=== PATIENT | male | born 1955 | race Caucasian/White ===

== ENCOUNTER → 2016-09-18 | Outpatient (REF) | payer BC | LOC: M LAB REF 13:10 | PROVIDERS: ATTEND Internal Medicine | DX: D51.9 Vitamin B12 deficiency anemia, unspecified (principal) ==

== ENCOUNTER → 2017-10-07 | Outpatient (REF) | payer BC ==
[2017-10-07 12:48] LABS: VITAMIN B12 LEVEL 336 PG/ML (247-911)
== END ==
LOC: M LAB REF 12:08
DX: D51.9 Vitamin B12 deficiency anemia, unspecified (principal)
CPT/HCPCS: 82607

== ENCOUNTER 2018-08-21 20:30 | Observation (INO) | payer BC ==
[~2018-08-21] VITALS: Ht 190.5 cm; Wt 100.8 kg
[2018-08-21 20:54] LABS: BASO % 0.5 % (0.0-1.0); EOS # 0.2 10^3/uL (0.0-0.50); EOS % 2.1 % (0.0-3.0); HEMATOCRIT 42.7 % (42.0-52.0); HEMOGLOBIN 14.6 g/dl (13.5-17.5); LYMPH # 3.2 10^3/uL (1.5-4.5); LYMPH % 39.1 % (24.0-44.0); MEAN CORPUSCULAR HEMOGLOBIN 32.9 pg (27.0-33.0); MEAN CORPUSCULAR HGB CONC 34.2 g/dl (32.0-36.5); MEAN CORPUSCULAR VOLUME 96.2 fl (80.0-96.0); MONO % 11.7 % (0.0-5.0); NEUTROPHILS # 3.8 10^3/uL (1.8-7.7); NEUTROPHILS % 46.4 % (36.0-66.0); PLATELET COUNT, AUTOMATED 202 10^3/uL (150-450); RED BLOOD COUNT 4.44 10^6/uL (4.30-6.10); WHITE BLOOD COUNT 8.3 10^3/uL (4.0-10.0)
[2018-08-21] MEDS: NITROGLYCERIN 0.4 MG SUBL TABLET SL PRN ×2 (21:10→21:21)
[2018-08-21 21:14] LABS: INR 0.99; PROTHROMBIN TIME 12.8 SECONDS (11.8-14.0)
[2018-08-21] MEDS ORDERED: ASPIRIN 81 MG CHEW TABLET PO ONE (21:15)
[2018-08-21 21:37] LABS: ALBUMIN 4.1 GM/DL (3.2-5.2); ALT/SGPT 30 U/L (12-78); BILIRUBIN,DIRECT 0.1 MG/DL (0.0-0.2); BILIRUBIN,TOTAL 0.6 MG/DL (0.2-1.0); BLOOD UREA NITROGEN 22 MG/DL (7-18); CALCIUM LEVEL 9.1 MG/DL (8.8-10.2); CARBON DIOXIDE LEVEL 27 MEQ/L (21-32); CHLORIDE LEVEL 108 MEQ/L (98-107); CK-MB VALUE MASS 1.7 NG/ML (<3.6); CPK CREATINE PHOSPHOKINASE 1392 U/L (39-308); GLOMERULAR FILTRATION RATE 50.3 (>49); GLUCOSE, FASTING 73 MG/DL (70-100); LIPASE 95 U/L (73-393); MB/CK RELATIVE INDEX 0.12 (< OR =4); POTASSIUM SERUM 3.9 MEQ/L (3.5-5.1); SODIUM LEVEL 144 MEQ/L (136-145); TOTAL PROTEIN 7.4 GM/DL (6.4-8.2); TROPONIN I < 0.02 NG/ML (< 0.10)
[2018-08-21] MEDS: NS 1,000 ML IV SCH (22:07)
[2018-08-22] MEDS: NS 1,000 ML IV SCH ×4 (02:30→22:12)
[2018-08-22 02:51] LABS: CK-MB VALUE MASS 1.5 NG/ML (<3.6); CPK CREATINE PHOSPHOKINASE 2536 U/L (39-308); MB/CK RELATIVE INDEX 0.06 (< OR =4); TROPONIN I < 0.02 NG/ML (< 0.10)
[2018-08-22] MEDS ORDERED: NS 1,000 ML IV ONE (03:15)
--- NOTE | 2018-08-22 03:44 | HPEPDOC ---
General Date of Admission 08/22/2018 Date of Service: Aug 22, 2018 Attending Physician: TRISTON CASTRO DO Chief Complaint The patient is a 62-year-old male admitted with a reason for visit of Chest [place] n. History of Present Illness Patient is a 62-year-old male who presented to the emergency room on account of left chest pain of sudden onset while he was outside raking leaves yesterday evening. Patient has a past medical history significant for hypertension. Patient reports will 3-4 days he has been feeling weak. He decided to rake leaves yesterday and after 2 bags was exhausted and decided to sit down. He went out with his friends to the [place] and on return home resumed raking the leaves again. He felt sudden pain to his left arm which radiated to his left chest. Pain lasted until arrival to emergency room. Other than weakness. There was no other associated symptoms Initial assessment in the emergency room revealed negative troponin at 0.02, total creatinine kinase, however, was elevated at 1392. Subsequent creatinine kinase trended upward to 2536. Creatinine was 1.50, BUN/creatinine 22, GFR 50. Patient was placed on IV fluids at 250 mL per hour. On assessment, he reveals he felt significantly improved after first liter of IV fluids. He denied further episodes of chest pain or shortness of breath. Home Medications No Active Prescriptions or Reported Meds Allergies Coded Allergies: No Known Allergies (Unverified , 08/21/18) Past Medical History Medical History Hypertension Inguinal hernia Kidney stones Diverticulitis Surgical History Hernia repair Right thumb repair Family History Father: Hypertension, TIA, CVA Social History * Smoker: Denies Alcohol: occationally Drugs: denies A-FIB/CHADSVASC A-FIB History Current/History of A-Fib/PAF?: No Current PO Anticoag Therapy: No Review of Systems Other systems A 10 point pertinent review of systems was completed, negative except as stated in the history of presenting illness. Physical Examination Other physical findings GENERAL: NAD SKIN : Warm, dry intact HEENT: Atraumatic, normocephalic, PERRL, moist mucous membrane CARDIOVASCULAR: Regular rate and rhythm, S1S2, no JVD, no edema, distal pulses + and palpable RESP: CTAB, no accessory muscle use noted ABDOMEN: BS+ non distended non tender MS: no joint deformities NEURO: Alert and oriented x 3, CN2-12 grossly intact PSYCH: no anxiety or agitation, appropriate mood and affect. Vital Signs Vital Signs Date Time Temp Pulse Resp B/P (MAP) Pulse Ox O2 Delivery O2 Flow Rate FiO2 08/22/18 03:15 62 96 08/22/18 03:00 16 147/99 (115) Room Air 08/21/18 21:30 4.0 08/21/18 20:31 96.2 Laboratory Data Labs 24H Laboratory Tests 2 08/21/18 20:38: Immature Granulocyte % (Auto) 0.2, White Blood Count 8.3, Red Blood Count 4.44, Hemoglobin 14.6, Hematocrit 42.7, Mean Corpuscular Volume 96.2H, Mean Corpuscular Hemoglobin 32.9, Mean Corpuscular Hemoglobin Concent 34.2, Red Cell Distribution Width 13.0, Platelet Count 202, Neutrophils (%) (Auto) 46.4, Lymphocytes (%) (Auto) 39.1, Monocytes (%) (Auto) 11.7H, Eosinophils (%) (Auto) 2.1, Basophils (%) (Auto) 0.5, Neutrophils # (Auto) 3.8, Lymphocytes # (Auto) 3.2, Monocytes # (Auto) 1.0H, Eosinophils # (Auto) 0.2, Basophils # (Auto) 0.0, Nucleated Red Blood Cells % (auto) 0.0, Prothrombin Time 12.8, Prothromb Time International Ratio 0.99, Anion Gap 9, Glomerular Filtration Rate 50.3, Calcium Level 9.1, Aspartate Amino Transf (AST/SGOT) 25, Alanine Aminotransferase (ALT/SGPT) 30, Alkaline Phosphatase 63, Total Bilirubin 0.6, Direct Bilirubin 0.1, Total Creatine Kinase 1392H, Creatine Kinase MB 1.7, Creatine Kinase MB Relative Index 0.12, Troponin I < 0.02, Total Protein 7.4, Albumin 4.1, Albumin/Globulin Ratio 1.24, Lipase 95 08/22/18 01:59: Total Creatine Kinase 2536#H, Creatine Kinase MB 1.5, Creatine Kinase MB Relative Index 0.06, Troponin I < 0.02 CBC/BMP Laboratory Tests 08/21/18 20:38 Red Blood Count 4.44, Mean Corpuscular Volume 96.2 H, Mean Corpuscular Hemoglobin 32.9, Mean Corpuscular Hemoglobin Concent 34.2, Red Cell Distribution Width 13.0, Neutrophils (%) (Auto) 46.4, Lymphocytes (%) (Auto) 39.1, Monocytes (%) (Auto) 11.7 H, Eosinophils (%) (Auto) 2.1, Basophils (%) (Auto) 0.5, Neutrophils # (Auto) 3.8, Lymphocytes # (Auto) 3.2, Monocytes # (Auto) 1.0 H, Eosinophils # (Auto) 0.2, Basophils # (Auto) 0.0 Assessment/Plan Chest pain -Acute NV has been ruled out with negative cardiac biomarkers -2-D echocardiogram to evaluate ejection fraction, rule out regional wall motion abnormalities- Given the fact that patient's chest pain is nonreproducible -We will need ischemic evaluation. Inpatient versus outpatient -CAD risk factor modifications with aspirin, statin, beta alannah therapy Acute kidney injury -Baseline creatinine seems to be 1.06 and patient has had a 30% increase -GFR also reduce at 50% -Acute injury, likely due to acute rhabdomyolysis -Monitor renal indices with treatment of underlying rhabdomyolysis -Avoid nephrotoxic medications Acute rhabdomyolysis -Etiology unclear. Could be multifactorial -IV fluids at 1 50 mL per hour -CK trending every 6 hours Hypertension -Monitoring. Unit protocol -. Target systolic blood pressure less than 1 40 mmHg DVT prophylaxis -Heparin subcutaneous every 8 Advanced care planning -CODE STATUS is full resuscitation Plan / VTE VTE Prophylaxis Ordered?: Yes ANGELLA SIFUENTESP Aug 22, 2018 03:44
[2018-08-22] MEDS ORDERED: ACETAMINOPHEN TAB 650MG DOSE (2X325MG) PO PRN (04:30)
[2018-08-22 05:00] VITALS: BP 152/99
[2018-08-22] MEDS: HEPARIN SOD (PORCINE) 5000 UNITS/ML VIAL SC SCH ×3 (06:42→22:12)
--- NOTE | 2018-08-22 07:25 | REP ---
Clinical: Chest pain . Comparison: 04/10/2018 . Findings: The mediastinum and cardiac silhouette are stable and within normal limits for portable technique. The lung abad are clear without acute consolidation, effusion, or pneumothorax. Skeletal structures are intact. Impression: No acute cardiopulmonary process appreciated. Electronically Signed by Elias Ng MD 08/22/2018 07:17 A
[2018-08-22] MEDS ORDERED: NITROGLYCERIN 0.4 MG SUBL TABLET SL PRN (08:45)
[2018-08-22] MEDS: ASPIRIN 325 MG TAB PO SCH (08:59)
[2018-08-22] MEDS: CARVedilol 3.125 MG TAB PO SCH ×2 (09:00→22:11)
[2018-08-22 10:00] VITALS: BP 165/103
[2018-08-22 13:07] LABS: CPK CREATINE PHOSPHOKINASE 2506 U/L (39-308); TROPONIN I < 0.02 NG/ML (< 0.10)
[2018-08-22 14:00] VITALS: BP 149/89
--- NOTE | 2018-08-22 17:26 | ECGEPIP ---
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
--- NOTE | 2018-08-22 17:34 | ECGEPIP ---
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
[2018-08-22 18:00] VITALS: BP 142/92
[2018-08-22 22:00] VITALS: BP 131/82
[2018-08-22 22:11] VITALS: BP 131/82
[2018-08-22] MEDS: ATORVASTATIN 20 MG TAB PO SCH ×2 (22:12→22:20)
[2018-08-23 02:00] VITALS: BP 126/74
[2018-08-23 05:53] LABS: HEMATOCRIT 37.8 % (42.0-52.0); HEMOGLOBIN 13.1 g/dl (13.5-17.5); MEAN CORPUSCULAR HEMOGLOBIN 32.9 pg (27.0-33.0); MEAN CORPUSCULAR HGB CONC 34.7 g/dl (32.0-36.5); PLATELET COUNT, AUTOMATED 156 10^3/uL (150-450); RED BLOOD COUNT 3.98 10^6/uL (4.30-6.10); WHITE BLOOD COUNT 6.1 10^3/uL (4.0-10.0)
[2018-08-23 06:00] VITALS: BP 147/82
[2018-08-23] MEDS: HEPARIN SOD (PORCINE) 5000 UNITS/ML VIAL SC SCH (06:00)
[2018-08-23 06:26] LABS: ALBUMIN 3.3 GM/DL (3.2-5.2); ALT/SGPT 24 U/L (12-78); BILIRUBIN,TOTAL 0.6 MG/DL (0.2-1.0); BLOOD UREA NITROGEN 14 MG/DL (7-18); CALCIUM LEVEL 8.6 MG/DL (8.8-10.2); CARBON DIOXIDE LEVEL 28 MEQ/L (21-32); CHLORIDE LEVEL 110 MEQ/L (98-107); CPK CREATINE PHOSPHOKINASE 1731 U/L (39-308); CREATININE FOR GFR 1.04 MG/DL (0.70-1.30); GLOMERULAR FILTRATION RATE > 60.0 (>49); GLUCOSE, FASTING 90 MG/DL (70-100); MAGNESIUM LEVEL 1.9 MG/DL (1.8-2.4); SODIUM LEVEL 141 MEQ/L (136-145); TOTAL PROTEIN 6.3 GM/DL (6.4-8.2)
[2018-08-23] MEDS: NS 1,000 ML IV SCH (07:35)
[2018-08-23] MEDS: CARVedilol 3.125 MG TAB PO SCH (08:20)
[2018-08-23] MEDS: ASPIRIN 325 MG TAB PO SCH (08:20)
[2018-08-23] MEDS ORDERED: ASPI81TA21 PO (09:55)
[2018-08-23] MEDS ORDERED: CARV3.12 PO (09:55)
[2018-08-23] MEDS ORDERED: NITR4TASL SL (09:55)
--- NOTE | 2018-08-23 09:59 | DS.PDOC ---
Discharge Summary General Date of Admission Aug 21, 2018 at 20:31 Date of Discharge Today Primary Care Physician: A Discharge Summary Chief Complaint The patient is a 62-year-old male admitted with a reason for visit of Chest Pain. History of Present Illness Patient is a 62-year-old male who presented to the emergency room on account of left chest pain of sudden onset while he was outside raking leaves yesterday evening. Patient has a past medical history significant for hypertension. The patient on my encounter stated that he felt like a spasm in her left arm which went up to the shoulder. Troponins were negative, but the patient was very reluctant to get the blood test drawn. His creatinine phosphokinase was elevated in 1999, and he just was feeling to get those tests done. The phosphokinase trended down after IV hydration. The patient's renal function continued to be no rmal. Patient was kept on telemetry monitoring which did not show any events. Serial EKGs did not reveal any ACS. The patient was completely chest pain-free. 2-D echo was ordered but not completed, but the patient does not want to get it done as he wants to follow with the primary doctor to get this done. The patient has been advised to continue drinking a lot of fluids called the PCP in 2-3 days to schedule a stress test and get the repeat blood work done. The patient will be discharged home on Coreg, aspirin and sublingual nitroglycerin when necessary. Everything has been explained to the patient in detail. He wants to go home today and does not want any other workup done inpatient and wants to follow with his primary care doctor as an outpatient Physical Examination GENERAL: NAD SKIN : Warm, dry intact HEENT: Atraumatic, normocephalic, PERRL, moist mucous membrane CARDIOVASCULAR: Regular rate and rhythm, S1S2, no JVD, no edema, distal pulses + and palpable RESP: CTAB, no accessory muscle use noted ABDOMEN: BS+ non distended non tender MS: no joint deformities NEURO: Alert and oriented x 3, CN2-12 grossly intact PSYCH: no anxiety or agitation, appropriate mood and affect. Vital Signs Date Time Temp Pulse Resp B/P (MAP) Pulse Ox O2 Delivery O2 Flow Rate FiO2 08/23/18 06:00 96.8 58 18 147/82 (103) 97 08/23/18 02:00 97.9 84 18 126/74 (91) 93 08/22/18 22:11 56 131/82 08/22/18 22:00 96.9 59 18 131/82 (98) 96 08/22/18 18:00 97.6 70 20 142/92 (109) 97 08/22/18 14:00 96.3 63 18 149/89 (109) 95 08/22/18 10:00 96.7 56 20 165/103 (123) 95 Intake & Output 08/23/18 06:00 Intake Total 3475 ml Output Total 2325 ml Balance 1150 ml Laboratory Tests 08/22/18 12:12: Total Creatine Kinase 2506H, Troponin I < 0.02 08/22/18 17:47: Total Creatine Kinase 2283H 08/22/18 23:39: Total Creatine Kinase 2091H 08/23/18 05:36: Total Creatine Kinase 1731H, White Blood Count 6.1, Red Blood Count 3.98L, Hemoglobin 13.1L, Hematocrit 37.8L, Mean Corpuscular Volume 95.0, Mean Cor puscular Hemoglobin 32.9, Mean Corpuscular Hemoglobin Concent 34.7, Red Cell Distribution Width 12.9, Platelet Count 156, Nucleated Red Blood Cells % (auto) 0.0, Blood Urea Nitrogen 14, Creatinine 1.04, Sodium Level 141, Potassium Level 4.0, Chloride Level 110H, Carbon Dioxide Level 28, Calcium Level 8.6L, Aspartate Amino Transf (AST/SGOT) 27, Alanine Aminotransferase (ALT/SGPT) 24, Alkaline Phosphatase 44L, Total Bilirubin 0.6, Total Protein 6.3L, Albumin 3.3, Anion Gap 3L, Glomerular Filtration Rate > 60.0, Fasting Glucose 90, Magnesium Level 1.9, Albumin/Globulin Ratio 1.10 Current Medications Medications (Trade) Dose Ordered Sig/Tonia Route PRN Reason Start Time Stop Time Status Last Admin Dose Admin Aspirin (Aspirin) 325 mg DAILY PO 08/22/18 09:00 08/22/18 08:59 325 MG Carvedilol (COReg) 3.125 mg BID PO 08/22/18 09:00 08/22/18 09:00 3.125 MG Heparin Sodium (Porcine) (Heparin) 5,000 units Q8H SC 08/22/18 06:00 08/22/18 22:12 5,000 UNITS Sodium Chloride 1,000 ml @ 100 mls/hr Q10H IV 08/22/18 04:30 08/22/18 22:12 100 MLS/HR Medications. As per discharge reconciliation medication list, Coreg, aspirin and sublingual nitroglycerin have been added Activity as tolerated Diet. 2 g sodium diet Follow-up appointments. PCP in 1 week, cardiology in 1 week. Condition on discharge. Patient is medically optimized for discharge Discharge disposition: Home Total time spent on this discharge including coordination of care, review of chart documentation and extubation contact is around 35 minutes Vital Signs/I&Os Vital Signs Date Time Temp Pulse Resp B/P (MAP) Pulse Ox O2 Delivery O2 Flow Rate FiO2 08/23/18 06:00 96.8 58 18 147/82 (103) 97 08/22/18 04:00 Room Air 08/21/18 21:30 4.0 I&O- Last 24 Hours up to 6 AM 08/23/18 06:00 Intake Total 3475 ml Output Total 2325 ml Balance 1150 ml Laboratory Data Labs 24H Laboratory Tests 2 08/22/18 12:12: Total Creatine Kinase 2506H, Troponin I < 0.02 08/22/18 17:47: Total Creatine Kinase 2283H 08/22/18 23:39: Total Creatine Kinase 2091H 08/23/18 05:36: Total Creatine Kinase 1731H, Nucleated Red Blood Cells % (auto) 0.0, Anion Gap 3L, Glomerular Filtration Rate > 60.0, Blood Urea Nitrogen 14, Creatinine 1.04, Sodium Level 141, Potassium Level 4.0, Chloride Level 110H, Carbon Dioxide Level 28, Calcium Level 8.6L, Aspartate Amino Transf (AST/SGOT) 27, Alanine Aminotransferase (ALT/SGPT) 24, Alkaline Phosphatase 44L, Total Bilirubin 0.6, Total Protein 6.3L, Albumin 3.3, Magnesium Level 1.9, Albumin/Globulin Ratio 1.10 CBC/BMP Laboratory Tests 08/23/18 05:36 Red Blood Count 3.98 L, Mean Corpuscular Volume 95.0, Mean Corpuscular Hemoglobin 32.9, Mean Corpuscular Hemoglobin Concent 34.7, Red Cell Distribution Width 12.9, Calcium Level 8.6 L, Aspartate Amino Transf (AST/SGOT) 27, Alanine Aminotransferase (ALT/SGPT) 24, Total Creatine Kinase 1731 H, Alkaline Phosphatase 44 L, Total Bilirubin 0.6, Total Protein 6.3 L, Albumin 3.3 Discharge Medications Scheduled Aspirin (Aspir-Low) 81 Mg Tablet.dr, 81 MG PO DAILY for pain with food Carvedilol (Carvedilol) 3.125 Mg Tablet, 3.125 MG PO BID Scheduled PRN Nitroglycerin (Nitrostat) 0.4 Mg Tab.subl, 0.4 MG SL Q5M PRN for CHEST PAIN Allergies Coded Allergies: No Known Allergies (Unverified , 08/21/18) MOY BRENNAN MD Aug 23, 2018 09:59
== END 2018-08-23 10:19 | disposition home or self-care (01) ==
LOC: M ED 20:30 → M ED INP 20:31 → M MSPAV 08-22 04:59
PROVIDERS: ADMIT Family Medicine; ATTEND Internal Medicine
DX: R07.89 Other chest pain (principal); I10 Essential (primary) hypertension; N17.9 Acute kidney failure, unspecified; M62.82 Rhabdomyolysis; Z79.82 Long term (current) use of aspirin; Z79.899 Other long term (current) drug therapy

== ENCOUNTER → 2018-11-14 | Outpatient (REF) | payer BC ==
[~2018-11-14] MED LIST: ASPI81TA21 PO; CARV3.12 PO; NITR4TASL SL
== END ==
LOC: M LAB REF 11:47
PROVIDERS: ATTEND Internal Medicine
DX: D51.9 Vitamin B12 deficiency anemia, unspecified (principal)

== ENCOUNTER → 2019-01-17 | Outpatient (CLI) | payer BC ==
--- NOTE | 2019-01-19 15:21 | SLEEPCENT ---
DATE OF PROCEDURE: 01/17/2019 ORDERING PROVIDER: Dr. Daniele Morgan, copy to Dr. Arely Tong. INTERPRETATION: Nocturnal polysomnography was performed for evaluation of sleep physiology in this patient with a history of snoring and nonrestorative sleep who has comorbidities of hypertension. 7 hours and 45 minutes of data were reviewed. There were 378 minutes of sleep identified. Sleep latency was mildly prolonged at 29 minutes. Rapid eye movement (REM) latency was normal at 66-minutes. Sleep architecture was fair. There were three REM cycles noted but fragmentation was appreciated and with a period of wake between 2:20 and 3:00 a.m. resulting in the sleep efficiency of 82%. The electrocardiogram showed an underlying sinus rhythm with an average heart rate of 60 beats per minute. Rate ranged 44-78. EEG showed normal waveforms for awake and sleep. No focal events were identified. There were 126 respiratory events identified of 10 seconds in duration or greater for an apnea-hypopnea index of 28. The events were obstructive, not exclusive to sleep stage nor body posture. Snoring was also noted during the study and respiratory related arousals occurred 16.7 times per hour. There were oxygen desaturations into the low 80s. Remaining measures of sleep physiology were normal. IMPRESSION: Obstructive sleep apnea syndrome (G47.33). Apnea-hypopnea index 28. RECOMMENDATIONS: The patient should be encouraged to return to the sleep disorder center for pressure therapy. In the interim alcohol and sedative avoidance should be practiced and caution exercised during the operation of motor vehicles.
== END ==
LOC: M SLEEP 19:42
PROVIDERS: ATTEND Internal Medicine Pulmonary Disease
DX: G47.33 Obstructive sleep apnea (adult) (pediatric) (principal)

== ENCOUNTER → 2019-04-27 | Outpatient (REF) | payer BC | LOC: M LAB REF 16:22 | PROVIDERS: ATTEND Internal Medicine | DX: D51.9 Vitamin B12 deficiency anemia, unspecified (principal) ==

== ENCOUNTER → 2019-12-04 | Outpatient (REF) | payer BC | LOC: M LAB REF 11:10 | PROVIDERS: ATTEND Internal Medicine | DX: D51.9 Vitamin B12 deficiency anemia, unspecified (principal) ==

== ENCOUNTER → 2020-03-25 | Outpatient (REF) | payer BC | LOC: M LAB REF 11:58 | PROVIDERS: ATTEND Internal Medicine | DX: D51.9 Vitamin B12 deficiency anemia, unspecified (principal) ==

== ENCOUNTER → 2020-12-29 | Outpatient (CLI) | payer BC ==
--- NOTE | 2020-12-29 12:03 | REP ---
INDICATION: F/U CYST. COMPARISON: 11/24/2018 from [facility] TECHNIQUE: Real-time sonographic evaluation of the kidneys with Doppler FINDINGS: Multiple ultrasonographic images of the right kidney show the right kidney to measure 11.2 x 8 x 6.9 cm. The renal cortical echotexture is unremarkable. There are no masses. There is good corticomedullary differentiation. There is no hydronephrosis. There are no perinephric fluid collections. There is a 2.2 cm sized peripelvic cyst and 3.9 cm sized cyst arising from the inferior pole. These are stable. Multiple ultrasonographic images of the left kidney show the left kidney to measure 13.8 x 5.8 x 7.1 cm. The renal cortical echotexture is unremarkable. There are no masses. There is good corticomedullary differentiation. There is no hydronephrosis. There are no perinephric fluid collections. There is a 1.1 cm sized peripelvic cyst. IMPRESSION: Bilateral renal cysts. <Electronically signed by Fuentes Garcia > 12/29/20 1200
== END ==
LOC: M RAD 10:50
PROVIDERS: ATTEND Internal Medicine
DX: N28.1 Cyst of kidney, acquired (principal)

== ENCOUNTER → 2021-03-20 | Outpatient (REF) | payer BC | LOC: M LAB REF 16:11 | PROVIDERS: ATTEND Internal Medicine | DX: D51.9 Vitamin B12 deficiency anemia, unspecified (principal) ==

== ENCOUNTER 2021-04-21 10:50 | Emergency (ER) | payer BC ==
[~2021-04-21] VITALS: Ht 190.5 cm; Wt 100.9 kg
[2021-04-21 11:42] LABS: BASO % 0.2 % (0.0-1.0); HEMATOCRIT 43.5 % (42.0-52.0); HEMOGLOBIN 14.9 g/dl (13.5-17.5); LYMPH # 0.7 10^3/uL (1.5-5.0); LYMPH % 5.6 % (24.0-44.0); MEAN CORPUSCULAR HEMOGLOBIN 31.9 pg (27.0-33.0); MEAN CORPUSCULAR HGB CONC 34.3 g/dl (32.0-36.5); MEAN CORPUSCULAR VOLUME 93.1 fl (80.0-96.0); MONO % 7.7 % (2.0-8.0); NEUTROPHILS # 10.6 10^3/uL (1.5-8.5); PLATELET COUNT, AUTOMATED 199 10^3/uL (150-450); RED BLOOD COUNT 4.67 10^6/uL (4.30-6.10); WHITE BLOOD COUNT 12.3 10^3/uL (4.0-10.0)
[2021-04-21 12:26] LABS: ALBUMIN 4.2 GM/DL (3.2-5.2); BILIRUBIN,DIRECT 0.2 MG/DL (0.0-0.2); BILIRUBIN,TOTAL 0.6 MG/DL (0.2-1.0); CALCIUM LEVEL 9.9 MG/DL (8.8-10.2); CREATININE FOR GFR 1.42 MG/DL (0.70-1.30); GLOMERULAR FILTRATION RATE 53.1 (>49); POTASSIUM SERUM 4.6 MEQ/L (3.5-5.1); TOTAL PROTEIN 7.3 GM/DL (6.4-8.2)
[2021-04-21 14:25] LABS: APPEARANCE, URINE HAZY (CLEAR); BACTERIA, URINE AUTO NEGATIVE (NEGATIVE); BILIRUBIN, URINE AUTO NEGATIVE (NEGATIVE); BLOOD, URINE BLOOD 2+ (NEGATIVE); COLOR, URINE YELLOW (YELLOW); GLUCOSE, URINE (UA) AUTO NEGATIVE (NEGATIVE); KETONE, URINE AUTO NEGATIVE (NEGATIVE); LEUKOCYTE ESTERASE, URINE AUTO NEGATIVE (NEGATIVE); MUCUS, URINE SMALL (NEGATIVE); NITRITE, URINE AUTO NEGATIVE (NEGATIVE); PROTEIN, URINE AUTO 1+ mg/dL (NEGATIVE); RBC, URINE AUTO 70 /HPF (0-3); SPECIFIC GRAVITY URINE AUTO 1.014 (1.002-1.035); SQUAMOUS EPITHELIAL CELL UR AU 0 /HPF (0-6); UROBILINOGEN, URINE AUTO 0.2 mg/dL (0.0-2.0); WBC, URINE AUTO 5 /HPF (0-3)
[2021-04-21] MEDS ORDERED: NS 500 ML IV ONE (14:30)
[2021-04-21] MEDS ORDERED: HYDR-3713 PO (14:42)
[2021-04-21] MEDS ORDERED: FLOM0.4C39 PO (14:42)
[2021-04-21] MEDS ORDERED: ONDA4TAB6 PO (14:42)
[2021-04-21 14:52] VITALS: BP 131/90
== END 2021-04-21 15:12 | disposition home or self-care (01) ==
LOC: M ED 10:50
DX: N13.2 Hydronephrosis with renal and ureteral calculous obstruction (principal); N28.1 Cyst of kidney, acquired

== ENCOUNTER 2021-07-14 20:58 | Emergency (ER) | payer BC ==
[~2021-07-14] VITALS: Ht 190.5 cm; Wt 218.0 kg
[~2021-07-14 20:58] MED LIST changes: +FLOM0.4C39 PO; +HYDR-3713 PO; +ONDA4TAB6 PO
[2021-07-14 22:22] LABS: BASO % 0.2 % (0.0-1.0); EOS # 0.1 10^3/uL (0.0-0.5); EOS % 0.4 % (0.0-3.0); HEMATOCRIT 43.3 % (42.0-52.0); HEMOGLOBIN 14.9 g/dl (13.5-17.5); LYMPH # 1.7 10^3/uL (1.5-5.0); LYMPH % 13.3 % (24.0-44.0); MEAN CORPUSCULAR HGB CONC 34.4 g/dl (32.0-36.5); MEAN CORPUSCULAR VOLUME 93.1 fl (80.0-96.0); NEUTROPHILS # 9.2 10^3/uL (1.5-8.5); NEUTROPHILS % 71.7 % (36.0-66.0); PLATELET COUNT, AUTOMATED 192 10^3/uL (150-450); RED BLOOD COUNT 4.65 10^6/uL (4.30-6.10); WHITE BLOOD COUNT 12.8 10^3/uL (4.0-10.0)
[2021-07-14 22:39] LABS: MONO # 1.8 10^3/uL (0.0-0.8)
[2021-07-14 22:48] LABS: BILIRUBIN,DIRECT 0.3 MG/DL (0.0-0.2); TOTAL PROTEIN 7.3 GM/DL (6.4-8.2)
[2021-07-15] MEDS ORDERED: TAMSULOSIN 0.4 MG CAP PO ONE (00:55)
[2021-07-15] MEDS ORDERED: NS 1,000 ML IV ONE (00:55)
[2021-07-15 00:58] VITALS: BP 132/83
[2021-07-16] MEDS ORDERED: CEPH500T PO (20:32)
== END 2021-07-15 02:19 | disposition home or self-care (01) ==
LOC: M ED 20:58
DX: N13.2 Hydronephrosis with renal and ureteral calculous obstruction (principal); R50.9 Fever, unspecified; E86.0 Dehydration; K57.30 Diverticulosis of large intestine without perforation or abscess without bleeding; R11.0 Nausea; R74.8 Abnormal levels of other serum enzymes; R79.89 Other specified abnormal findings of blood chemistry; G89.29 Other chronic pain; M54.9 Dorsalgia, unspecified; I10 Essential (primary) hypertension; F17.200 Nicotine dependence, unspecified, uncomplicated; Z79.82 Long term (current) use of aspirin; Z79.899 Other long term (current) drug therapy

== ENCOUNTER 2021-07-16 15:23 | Emergency (ER) | payer BC ==
[~2021-07-16] VITALS: Ht 190.5 cm; Wt 99.1 kg
[2021-07-16] MEDS ORDERED: NS 1,000 ML IV ONE (17:35)
[2021-07-16 18:20] LABS: BASO % 0.1 % (0.0-1.0); EOS % 0.1 % (0.0-3.0); HEMOGLOBIN 13.4 g/dl (13.5-17.5); LYMPH # 1.3 10^3/uL (1.5-5.0); LYMPH % 9.6 % (24.0-44.0); MEAN CORPUSCULAR HEMOGLOBIN 32.7 pg (27.0-33.0); MEAN CORPUSCULAR HGB CONC 34.4 g/dl (32.0-36.5); MEAN CORPUSCULAR VOLUME 95.1 fl (80.0-96.0); MONO % 16.1 % (2.0-8.0); NEUTROPHILS # 9.9 10^3/uL (1.5-8.5); NEUTROPHILS % 73.7 % (36.0-66.0); PLATELET COUNT, AUTOMATED 152 10^3/uL (150-450); WHITE BLOOD COUNT 13.4 10^3/uL (4.0-10.0)
[2021-07-16] MEDS ORDERED: MORPHINE 4 MG/ML 1ML VIAL/SYRINGE IV ONE (18:30)
[2021-07-16] MEDS ORDERED: ONDANSETRON 4MG/2ML VIAL IV ONE (18:30)
[2021-07-16 18:49] LABS: ALBUMIN 3.5 GM/DL (3.2-5.2); BILIRUBIN,DIRECT 0.4 MG/DL (0.0-0.2); BILIRUBIN,TOTAL 1.5 MG/DL (0.2-1.0); TOTAL PROTEIN 6.7 GM/DL (6.4-8.2)
[2021-07-16 18:56] LABS: MONO # 2.2 10^3/uL (0.0-0.8)
[2021-07-16] MEDS ORDERED: cefTRIAXone SOD 1 GM in D5W MINI-BAG PLUS 50 ML IV ONE (19:40)
[2021-07-16] MEDS ORDERED: CEPH500T PO (20:32)
[2021-07-16 21:04] VITALS: BP 141/84
== END 2021-07-16 21:03 | disposition home or self-care (01) ==
LOC: M ED 15:23
DX: N39.0 Urinary tract infection, site not specified (principal); R10.9 Unspecified abdominal pain; R06.02 Shortness of breath; I10 Essential (primary) hypertension; K57.30 Diverticulosis of large intestine without perforation or abscess without bleeding; Z79.82 Long term (current) use of aspirin; Z79.899 Other long term (current) drug therapy
CPT/HCPCS: 74018; 80047; 80076; 81001; 85025; 96361; 96365; 96375; 99284; J0696; J2270; J2405

== ENCOUNTER → 2021-07-27 | Outpatient (CLI) | payer BC ==
[~2021-07-27] MED LIST changes: +CEPH500T PO
== END ==
LOC: M WHC 12:28
PROVIDERS: ATTEND Internal Medicine
DX: N13.30 Unspecified hydronephrosis (principal)

== ENCOUNTER → 2021-10-19 | Outpatient (CLI) | payer BC | LOC: M RAD 09:38 | PROVIDERS: ATTEND Physician Assistant | DX: N20.0 Calculus of kidney (principal); K76.89 Other specified diseases of liver; N28.1 Cyst of kidney, acquired; K57.90 Diverticulosis of intestine, part unspecified, without perforation or abscess without bleeding ==

== ENCOUNTER → 2022-04-09 | Outpatient (REF) | payer MEDICARE, BC ==
[~2022-04-09] MED LIST changes: +AMLO1TAB24 PO; +B-12100010 PO; +LEVOTAB10 PO; +ROSU10TA6 PO; +[UNRECOGNIZED DRUG - CODE] PO
== END ==
LOC: M LAB REF 16:05
PROVIDERS: ATTEND Internal Medicine
DX: D51.9 Vitamin B12 deficiency anemia, unspecified (principal)

== ENCOUNTER → 2022-04-16 | Outpatient (CLI) | payer BC, MEDICARE | LOC: M LABSMTC 08:37 | PROVIDERS: ATTEND Anesthesiology | DX: Z01.812 Encounter for preprocedural laboratory examination (principal) ==

== ENCOUNTER → 2022-05-07 | Outpatient (CLI) | payer MEDICARE, BC | LOC: M PLAIMG 09:39 | PROVIDERS: ATTEND Physician Assistant | DX: N20.0 Calculus of kidney (principal) ==

== ENCOUNTER 2022-08-23 07:35 | Day surgery (SDC) | payer MEDICARE, BC ==
[~2022-08-23] VITALS: Ht 190.5 cm; Wt 99.3 kg
[~2022-08-23 07:35] MED LIST changes: +AMLO2.5T3 PO; +LOSA25TA13 PO; +METO1TAB32 PO; +NS 1,000 ML IV ONE
[2022-08-23] MEDS ORDERED: propofoL 200 MG/20 ML VIAL As Ordered ONE ×2 (08:24→09:01)
[2022-08-23] MEDS ORDERED: GLYCOPYRROLATE INJ 0.2 MG/ML 2 ML VIAL As Ordered ONE (09:07)
[2022-08-23 09:12] VITALS: TEMP 96.4
[2022-08-23 09:30] VITALS: BP 98/61; O2SAT 97
== END 2022-08-23 09:51 | disposition home or self-care (01) ==
LOC: M OPP 07:35
PROVIDERS: ATTEND Internal Medicine Gastroenterology
DX: Z12.11 Encounter for screening for malignant neoplasm of colon (principal); Z86.010 Personal history of colon polyps; Z80.0 Family history of malignant neoplasm of digestive organs; K57.30 Diverticulosis of large intestine without perforation or abscess without bleeding; G47.33 Obstructive sleep apnea (adult) (pediatric); Z99.89 Dependence on other enabling machines and devices; Z87.891 Personal history of nicotine dependence; Z79.02 Long term (current) use of antithrombotics/antiplatelets; Z79.82 Long term (current) use of aspirin; Z79.899 Other long term (current) drug therapy

== ENCOUNTER → 2023-03-15 | Outpatient (REF) | payer MEDICARE, BC ==
[~2023-03-15] MED LIST changes: -NS 1,000 ML IV ONE
== END ==
LOC: M LAB REF 12:21
PROVIDERS: ATTEND Internal Medicine
DX: D51.9 Vitamin B12 deficiency anemia, unspecified (principal)

== ENCOUNTER → 2023-03-22 | Outpatient (CLI) | payer MEDICARE, BC | LOC: M WUC 11:36 | PROVIDERS: ATTEND Internal Medicine | DX: R05.9 Cough, unspecified (principal) ==

== ENCOUNTER 2023-05-02 12:54 | Observation (INO) | payer MEDICARE, BC ==
[~2023-05-02] VITALS: Ht 193 cm; Wt 106.8 kg
[2023-05-02] MEDS ORDERED: GNP250TA9 PO (13:03)
[2023-05-02] MEDS ORDERED: FLEC50HA PO (13:03)
[2023-05-02] MEDS ORDERED: BENZ200C70 PO (13:03)
[2023-05-02 14:30] LABS: BASO # 0.1 10^3/uL (0.0-0.2); BASO % 0.4 % (0.0-1.0); EOS # 0.1 10^3/uL (0.0-0.5); EOS % 0.7 % (0.0-3.0); HEMATOCRIT 44.7 % (42.0-52.0); HEMOGLOBIN 15.3 g/dl (13.5-17.5); LYMPH # 1.7 10^3/uL (1.5-5.0); LYMPH % 12.7 % (24.0-44.0); MEAN CORPUSCULAR HEMOGLOBIN 32.4 pg (27.0-33.0); MEAN CORPUSCULAR HGB CONC 34.2 g/dl (32.0-36.5); MEAN CORPUSCULAR VOLUME 94.7 fl (80.0-96.0); MONO # 1.4 10^3/uL (0.0-0.8); MONO % 10.2 % (2.0-8.0); NEUTROPHILS # 10.1 10^3/uL (1.5-8.5); NEUTROPHILS % 75.6 % (36.0-66.0); PLATELET COUNT, AUTOMATED 215 10^3/uL (150-450); RED BLOOD COUNT 4.72 10^6/uL (4.30-6.10); WHITE BLOOD COUNT 13.4 10^3/uL (4.0-10.0)
[2023-05-02 14:51] LABS: ALBUMIN 4.3 G/DL (3.2-5.2); BILIRUBIN,DIRECT 0.4 MG/DL (<0.4); BILIRUBIN,TOTAL 1.1 MG/DL (0.3-1.2); CALCIUM LEVEL 9.9 MG/DL (8.3-10.6); CREATININE FOR GFR 1.31 MG/DL (0.70-1.30); GLOMERULAR FILTRATION RATE 57.9 (>49); POTASSIUM SERUM 4.3 MMOL/L (3.5-5.1); TOTAL PROTEIN 7.2 G/DL (5.7-8.2)
[2023-05-02] MEDS ORDERED: ISOVUE-370 76% 100ML VIAL As Ordered ONE (16:40)
[2023-05-02] MEDS: NS 1,000 ML IV ONE (16:42)
[2023-05-02] MEDS: ONDANSETRON 4MG 2ML VIAL IV ONE (16:42)
[2023-05-02] MEDS: KETOROLAC 30 MG/ML 1ML VIAL IV ONE (17:12)
[2023-05-02] MEDS ORDERED: HYDROMORPHONE HCL 0.5 MG/ 0.5 ML SYRINGE IV PRN (18:20)
[2023-05-02] MEDS ORDERED: NALOXONE INJ 0.4MG/1ML VIAL IV PRN (18:20)
[2023-05-02] MEDS ORDERED: PERCOCET 5MG/325MG TAB PO PRN (18:20)
[2023-05-02] MEDS ORDERED: ONDANSETRON 4MG 2ML VIAL IV PRN (18:20)
[2023-05-02] MEDS ORDERED: ACETAMINOPHEN TAB 650MG DOSE (2X325MG) PO PRN (18:20)
[2023-05-02] MEDS: NS 2,000 ML IV ONE (18:47)
[2023-05-02] MEDS ORDERED: VITA100093 PO (19:09)
[2023-05-02] MEDS ORDERED: BENZ-18 PO (19:09)
[2023-05-02] MEDS ORDERED: HOME MED LIST COMPLETE! XX SCH ×3 (19:10→20:20)
[2023-05-02] MEDS: cefTRIAXone SOD 1 GM in D5W MINI-BAG PLUS 50 ML IV SCH (20:01)
[2023-05-02] MEDS ORDERED: LOSARTAN 25 MG TAB PO SCH (21:00)
[2023-05-02] MEDS ORDERED: CYANOCOBALAMIN 500 MCG TAB PO SCH (21:00)
[2023-05-02 21:50] VITALS: BP 131/79; TEMP 97; O2SAT 95
[2023-05-02 23:44] VITALS: BP 138/80
[2023-05-02] MEDS: METOPROLOL SUCC *XL* 25MG TAB (TopROL *XL*) PO SCH (23:44)
[2023-05-02] MEDS: BENZONATATE 100MG CAPSULE PO SCH (23:45)
[2023-05-02] MEDS: VITAMIN D 1,000 INTERNATIONAL UNITS TABLET PO SCH (23:45)
[2023-05-02] MEDS: ROSUVASTATIN 10 MG TAB (CRESTOR) PO SCH (23:45)
[2023-05-02] MEDS: LORATADINE 10 MG TAB PO SCH (23:45)
[2023-05-02] MEDS: FLECAINIDE 50MG TABLET PO SCH (23:46)
[2023-05-02] MEDS: CYANOCOBALAMIN 500 MCG TAB PO SCH (23:46)
[2023-05-03] MEDS: LR 1,000 ML IV SCH (05:36)
[2023-05-03 05:42] VITALS: BP 109/63; TEMP 97.9; O2SAT 94
[2023-05-03 07:18] LABS: BASO % 0.3 % (0.0-1.0); EOS # 0.1 10^3/uL (0.0-0.5); EOS % 1.3 % (0.0-3.0); HEMATOCRIT 38.8 % (42.0-52.0); HEMOGLOBIN 13.4 g/dl (13.5-17.5); LYMPH # 1.5 10^3/uL (1.5-5.0); LYMPH % 16.3 % (24.0-44.0); MEAN CORPUSCULAR HEMOGLOBIN 32.5 pg (27.0-33.0); MEAN CORPUSCULAR HGB CONC 34.5 g/dl (32.0-36.5); MEAN CORPUSCULAR VOLUME 94.2 fl (80.0-96.0); MONO # 1.4 10^3/uL (0.0-0.8); MONO % 15.2 % (2.0-8.0); NEUTROPHILS # 6.3 10^3/uL (1.5-8.5); NEUTROPHILS % 66.7 % (36.0-66.0); PLATELET COUNT, AUTOMATED 156 10^3/uL (150-450); RED BLOOD COUNT 4.12 10^6/uL (4.30-6.10); WHITE BLOOD COUNT 9.4 10^3/uL (4.0-10.0)
[2023-05-03 07:23] LABS: INR 1.1; PARTIAL THROMBOPLASTIN TIME 31.3 SECONDS (24.8-34.2); PROTHROMBIN TIME 13.8 SECONDS (12.5-14.5)
[2023-05-03 07:36] LABS: CALCIUM LEVEL 8.3 MG/DL (8.3-10.6); CREATININE FOR GFR 1.78 MG/DL (0.70-1.30); GLOMERULAR FILTRATION RATE 40.7 (>49); POTASSIUM SERUM 4.4 MMOL/L (3.5-5.1)
[2023-05-03] MEDS ORDERED: PERCOCET PO (11:29)
[2023-05-03] MEDS ORDERED: CEFD300CAP PO (13:47)
[2023-05-03 14:50] VITALS: BP 138/86; TEMP 97.9; O2SAT 100
[2023-05-03] MEDS ORDERED: MIDAZOLAM INJ 2MG/2ML VIAL As Ordered ONE (16:00)
[2023-05-03] MEDS ORDERED: LIDOCAINE 2% 100MG/5ML SDV (FOR ANES.) As Ordered ONE (16:00)
[2023-05-03] MEDS ORDERED: fentaNYL 100 MCG/2 ML INJECTION As Ordered ONE (16:00)
[2023-05-03] MEDS ORDERED: propofoL 200 MG/20 ML VIAL As Ordered ONE (16:00)
[2023-05-03] MEDS: ISOVUE-300 61% 100ML VIAL As Ordered ONE (16:34)
[2023-05-03] MEDS ORDERED: HYDROMORPHONE HCL 0.5 MG/ 0.5 ML SYRINGE IV PRN (16:45)
[2023-05-03] MEDS ORDERED: ONDANSETRON 4MG 2ML VIAL IV PRN (16:45)
[2023-05-03] MEDS ORDERED: fentaNYL 100 MCG/2 ML INJECTION IV PRN (16:45)
[2023-05-03] MEDS ORDERED: oxyCODONE 5MG TAB PO PRN (16:45)
[2023-05-03] MEDS ORDERED: LR 1,000 ML IV SCH (16:45)
[2023-05-03] MEDS ORDERED: KETOROLAC 60MG 2ML VIAL As Ordered ONE (17:06)
[2023-05-03] MEDS ORDERED: PHEN-500 PO (17:16)
[2023-05-03] MEDS ORDERED: OXYB5TAB14 PO (17:16)
[2023-05-03] MEDS: oxyBUTYnin 5 MG TAB PO SCH (19:41)
[2023-05-03] MEDS ORDERED: oxyBUTYnin 5 MG TAB PO SCH (21:00)
[2023-05-03] MEDS: KETOROLAC 30 MG/ML 1ML VIAL IM ONE (21:19)
[2023-05-03] MEDS: PHENAZOPYRIDINE 100 MG TAB PO ONE (21:36)
[2023-05-03] MEDS: TAMSULOSIN 0.4 MG CAP PO ONE (21:36)
[2023-05-03 22:00] VITALS: BP 114/74; TEMP 97.7; O2SAT 97
== END 2023-05-03 22:29 | disposition home or self-care (01) ==
LOC: M ED 12:54 → M ED INP 18:14 → ENRESERV 21:01 → M MS5PR 21:50
PROVIDERS: ADMIT General Practice; ATTEND General Practice
DX: N20.1 Calculus of ureter (principal); N13.9 Obstructive and reflux uropathy, unspecified; N17.9 Acute kidney failure, unspecified; I47.19 Other supraventricular tachycardia; I25.10 Atherosclerotic heart disease of native coronary artery without angina pectoris; I25.2 Old myocardial infarction; I10 Essential (primary) hypertension; Z87.442 Personal history of urinary calculi; N40.0 Benign prostatic hyperplasia without lower urinary tract symptoms; N28.1 Cyst of kidney, acquired; N23 Unspecified renal colic; K76.89 Other specified diseases of liver; M54.50 Low back pain, unspecified; G89.29 Other chronic pain; Z85.828 Personal history of other malignant neoplasm of skin; Z80.0 Family history of malignant neoplasm of digestive organs; Z83.719 Family history of colon polyps, unspecified; Z79.899 Other long term (current) drug therapy
CPT/HCPCS: 36415; 52332; 71046; 74177; 76000; 80048; 80076; 81001; 83690; 85025; 85610; 85730; 87635; 96365; 96372; 96375; 99284; C1769; C2617; G0378; J0696; J1885; J2250; J2405; J3010; Q9967

== ENCOUNTER → 2023-05-05 | Outpatient (CLI) | payer MEDICARE, BC ==
[~2023-05-05] MED LIST changes: +BENZ-18 PO; +BENZ200C70 PO; +CEFD300CAP PO; +FLEC50HA PO; +GNP250TA9 PO; +OXYB5TAB14 PO; +PERCOCET PO; +PHEN-500 PO; +VITA100093 PO
[2023-05-05 15:40] LABS: BLOOD UREA NITROGEN 16 MG/DL (9-23); CARBON DIOXIDE LEVEL 28 MMOL/L (20-31); CHLORIDE LEVEL 105 MMOL/L (98-107); CREATININE FOR GFR 1.16 MG/DL (0.70-1.30); GLOMERULAR FILTRATION RATE > 60.0 (>49); GLUCOSE, FASTING 95 MG/DL (74-106); POTASSIUM SERUM 4.1 MMOL/L (3.5-5.1); SODIUM LEVEL 138 MMOL/L (136-145)
== END ==
LOC: M LAB 14:29
PROVIDERS: ATTEND General Practice
DX: N17.9 Acute kidney failure, unspecified (principal)

== ENCOUNTER → 2023-06-19 | Outpatient (REF) | payer MEDICARE, BC ==
[~2023-06-19] MED LIST changes: -ROSU10TA6 PO; +ROSU10TA61 PO
[2023-06-19 13:15] LABS: APPEARANCE, URINE HAZY (CLEAR); BACTERIA, URINE AUTO NEGATIVE (NEGATIVE); BILIRUBIN, URINE AUTO NEGATIVE (NEGATIVE); BLOOD, URINE BLOOD 3+ (NEGATIVE); COLOR, URINE YELLOW (YELLOW); GLUCOSE, URINE (UA) AUTO NEGATIVE (NEGATIVE); KETONE, URINE AUTO NEGATIVE (NEGATIVE); LEUKOCYTE ESTERASE, URINE AUTO 1+ (NEGATIVE); MUCUS, URINE SMALL (NEGATIVE); NITRITE, URINE AUTO NEGATIVE (NEGATIVE); PROTEIN, URINE AUTO 2+ mg/dL (NEGATIVE); RBC, URINE AUTO TNTC /HPF (0-3); SPECIFIC GRAVITY URINE AUTO 1.017 (1.002-1.035); SQUAMOUS EPITHELIAL CELL UR AU 0 /HPF (0-6); UROBILINOGEN, URINE AUTO 0.2 mg/dL (0.0-2.0); WBC, URINE AUTO 14 /HPF (0-3)
[2023-06-19 13:17] LABS: INR 0.95; PARTIAL THROMBOPLASTIN TIME 28.7 SECONDS (24.8-34.2); PROTHROMBIN TIME 12.4 SECONDS (12.5-14.5)
== END ==
LOC: M LAB REF 12:19
PROVIDERS: ATTEND Internal Medicine
DX: Z01.818 Encounter for other preprocedural examination (principal); D51.9 Vitamin B12 deficiency anemia, unspecified

== ENCOUNTER → 2023-06-26 | Outpatient (REF) | payer MEDICARE, BC ==
[~2023-06-26] MED LIST changes: +ASPI81TA26 PO; +LORA-243 PO
[2023-06-26 14:23] LABS: APPEARANCE, URINE CLOUDY (CLEAR); BACTERIA, URINE AUTO 1+ (NEGATIVE); BILIRUBIN, URINE AUTO NEGATIVE (NEGATIVE); BLOOD, URINE BLOOD 2+ (NEGATIVE); COLOR, URINE AMBER (YELLOW); GLUCOSE, URINE (UA) AUTO NEGATIVE (NEGATIVE); KETONE, URINE AUTO NEGATIVE (NEGATIVE); LEUKOCYTE ESTERASE, URINE AUTO 1+ (NEGATIVE); MUCUS, URINE SMALL (NEGATIVE); NITRITE, URINE AUTO NEGATIVE (NEGATIVE); PROTEIN, URINE AUTO 2+ mg/dL (NEGATIVE); RBC, URINE AUTO TNTC /HPF (0-3); SPECIFIC GRAVITY URINE AUTO 1.018 (1.002-1.035); SQUAMOUS EPITHELIAL CELL UR AU 0 /HPF (0-6); UROBILINOGEN, URINE AUTO 0.2 mg/dL (0.0-2.0); WBC, URINE AUTO 17 /HPF (0-3)
== END ==
LOC: M LAB REF 12:49
PROVIDERS: ATTEND Internal Medicine
DX: Z01.818 Encounter for other preprocedural examination (principal)

== ENCOUNTER 2023-07-04 06:18 | Day surgery (SDC) | payer MEDICARE, BC ==
[~2023-07-04] VITALS: Ht 190.5 cm; Wt 100.7 kg
[2023-07-04] MEDS ORDERED: LR 1,000 ML IV SCH (06:55)
[2023-07-04] MEDS ORDERED: propofoL 500 MG/50 ML VIAL As Ordered ONE (07:09)
[2023-07-04] MEDS ORDERED: propofoL 200 MG/20 ML VIAL As Ordered ONE (07:09)
[2023-07-04] MEDS: ceFAZolin SOD 2 GM in IV 1 EA IV ONE (08:20)
[2023-07-04] MEDS ORDERED: ACETAMINOPHEN 1000MG 100ML IV BAG As Ordered ONE (08:50)
[2023-07-04] MEDS ORDERED: KETOROLAC 60MG 2ML VIAL As Ordered ONE (09:01)
[2023-07-04] MEDS ORDERED: HYDR-3713 PO (09:45)
[2023-07-04 09:49] VITALS: BP 106/78; TEMP 97.7; O2SAT 95
== END 2023-07-04 10:50 | disposition home or self-care (01) ==
LOC: M SDC 06:18
PROVIDERS: ATTEND Urology
DX: N20.1 Calculus of ureter (principal); G47.30 Sleep apnea, unspecified; Z87.891 Personal history of nicotine dependence; Z79.899 Other long term (current) drug therapy
CPT/HCPCS: 50590; 74018; J0131; J0690; J1885

== ENCOUNTER → 2023-07-08 | Outpatient (REF) | payer MEDICARE, BC | LOC: M SMT 12:47 | PROVIDERS: ATTEND Urology | DX: Z96.0 Presence of urogenital implants (principal) ==

== ENCOUNTER → 2024-03-27 | Outpatient (REF) | payer MEDICARE, BC ==
[~2024-03-27] MED LIST changes: +ONDA-282 PO; -ONDA4TAB6 PO
== END ==
LOC: M LAB REF 12:47
PROVIDERS: ATTEND Internal Medicine
DX: D51.9 Vitamin B12 deficiency anemia, unspecified (principal)

== ENCOUNTER → 2025-02-09 | Outpatient (CLI) | payer MEDICARE, BC ==
[~2025-02-09] MED LIST changes: -FLOM0.4C39 PO; -ROSU10TA61 PO; +ROSU10TA90 PO; +TAMS-18 PO
== END ==
LOC: M RAD 08:32
PROVIDERS: ATTEND Nurse Practitioner Family
DX: I47.19 Other supraventricular tachycardia (principal); G45.9 Transient cerebral ischemic attack, unspecified; R55 Syncope and collapse